=== PATIENT | female | born 1975 | race Caucasian/White ===

== ENCOUNTER 2018-03-05 16:15 | Outpatient (CLI) | payer OTHER | END 2018-03-05 16:16 | disposition home or self-care (01) | LOC: BICRAD 16:15 | PROVIDERS: ATTEND Internal Medicine Gastroenterology | DX: C18.7 Malignant neoplasm of sigmoid colon (principal); R10.33 Periumbilical pain; R11.2 Nausea with vomiting, unspecified; R19.8 Other specified symptoms and signs involving the digestive system and abdomen | CPT/HCPCS: 74019 ==

== ENCOUNTER 2018-03-06 08:25 | Outpatient (CLI) | payer OTHER ==
[2018-03-06] MEDS ORDERED: Iopamidol 370 76% 100 ML VIAL ONE (10:44)
== END 2018-03-06 08:26 | disposition home or self-care (01) ==
LOC: BICCT 08:25
PROVIDERS: ATTEND Internal Medicine Gastroenterology
DX: R10.33 Periumbilical pain (principal); R11.2 Nausea with vomiting, unspecified; R19.8 Other specified symptoms and signs involving the digestive system and abdomen; C18.7 Malignant neoplasm of sigmoid colon; R93.3 Abnormal findings on diagnostic imaging of other parts of digestive tract
CPT/HCPCS: 74177

== ENCOUNTER 2018-09-19 07:27 | Outpatient (CLI) | payer OTHER ==
--- NOTE | 2018-09-19 10:35 | CT ---
CT PARANASAL SINUSES NONCONTRAST: Date: 09/19/18 HISTORY: 43-year-old female with: J34.3 hypertrophy of nasal turbinates. R09.81 nasal congestion. J34.2 deviated nasal septum. R51 headache. Unilateral rhinorrhea. FINDINGS: Frontal Sinuses: Clear. Right frontal sinus is very hypoplastic. Bilateral frontal recesses are not occluded. Ethmoid Sinuses: Mild to moderate mucosal thickening throughout bilateral ethmoid air cells. Sphenoid Sinus: Mild mucosal thickening at the anterior aspects of both the right and left sphenoid air cells, including significant narrowing or occlusion of sphenoethmoidal recesses. The rest of the sphenoid air cells are clear. Right Maxillary Sinus: Mild mucosal thickening narrows the right infundibulum and ostium. Semilunar hiatus is narrowed or occluded by the mucosal thickening. Mild to moderate polypoid mucosal thickenin g throughout the right maxillary sinus, and a few small mucus retention cysts. Small air fluid level. Approximately 10-15% opacified. Left Maxillary Sinus: Small and moderate size mucus retention cysts. Mild circumferential mucosal th ickening. Apparent occlusion of left maxillary ostium and infundibulum by mucosal thickening. Approxi mately 60% opacified antrum. Nasal Cavity: Mild to moderate nasal septal deviation to the left with nasal spur. Middle and inferi or meati are grossly clear, except for a small amount of secretions at the inferior aspect of the rig ht inferior meatus. Mild mucosal thickening at superior meati. Bilateral middle ear cavities and mastoid antra are clear. Bilateral mastoid air cells are grossly cl ear. IMPRESSION: Mucosal disease of the paranasal sinuses, moderate involving bilateral maxillary sinuses, and mild in volving ethmoid and sphenoid sinuses. POS: CET
== END 2018-09-19 07:28 | disposition home or self-care (01) ==
LOC: SCSCT 07:27
PROVIDERS: ATTEND Otolaryngology Plastic Surgery within the Head & Neck
DX: H93.293 Other abnormal auditory perceptions, bilateral (principal); R51 Headache; H81.49 Vertigo of central origin, unspecified ear; J34.3 Hypertrophy of nasal turbinates; R09.81 Nasal congestion; J34.2 Deviated nasal septum

== ENCOUNTER 2019-07-04 08:50 | Outpatient (CLI) | payer OTHER ==
--- NOTE | 2019-07-04 11:55 | NM ---
EXAM: NM Hida Scan W Drug PROVIDED CLINICAL HISTORY: Epigastric abdominal pain and right-sided abdominal pain for 6 months. Irregular bowel movements. His tory of colon cancer. COMPARISON: None FINDINGS: Sequential anterior images of the abdomen are obtained. There is normal uptake and excretion of radio tracer by the liver. Gallbladder activity is faintly visualized by 12 minutes with increasing activity in the gallbladder imaging up to 60 minutes. Definite bowel activity is not seen by 60 minut es of imaging. After 60 minutes of imaging, 8 ounces of ensure was administered by mouth, and additional anterior imaging was obtained. Bowel activity is faintly visualized by 3 minutes. A gallbl adder ejection fraction of 33% was obtained. This is borderline diminished as a normal gallbladder ejection fraction is greater than 33%. IMPRESSION: 1. No evidence of a cystic or common duct obstruction. 2. Decrease in gallbladder ejection fraction measuring 33%. Normal gallbladder ejection fraction is g reater than 33%. This can be seen with biliary dyskinesis or chronic cholecystitis.
== END 2019-07-04 08:51 | disposition home or self-care (01) ==
LOC: NM 08:50
PROVIDERS: ATTEND Physician Assistant Medical
DX: R11.2 Nausea with vomiting, unspecified (principal); R10.13 Epigastric pain; R19.4 Change in bowel habit; R10.9 Unspecified abdominal pain; R14.0 Abdominal distension (gaseous)
CPT/HCPCS: 78227; A9537

== ENCOUNTER 2019-07-25 09:47 | Day surgery (SDC) | payer OTHER ==
[2019-07-24 11:52] VITALS: BMI 40.3
[2019-07-25 11:04] LABS: #Basophils 0.1 thou/uL (0.0-0.2); #Eosinphils 0.2 thou/uL (0.0-0.7); #Lymphocytes 1.1 thou/uL (1.20-3.40); #Monocytes 0.3 thou/uL (0.11-0.59); #Neutrophils 2.9 thou/uL (1.40-6.50); %Basophils 1.1 % (0.0-1.0); %Eosinophils 3.4 % (0.0-10.0); %Lymphocytes 25.1 % (21.0-51.0); %Monocytes 6.8 % (0.0-10.0); %Neutrophils 63.7 % (42.0-75.0); Hemoglobin 12.1 g/dL (12.0-16.0); Mean Corpuscular HGB CONC 33.5 g/dL (32.0-36.0); Mean Corpuscular Volume 92.5 fL (78.0-98.0); Mean Platelet Volume 8.7 fL (7.4-10.4); Platelet Count 177 thou/uL (130-400); Red Blood Cell (RBC) Count 3.91 mill/uL (4.20-5.40); White Blood Cell (WBC) Count 4.5 thou/uL (4.8-10.8)
[2019-07-25 11:32] LABS: ALT (SGPT) 11 U/L (8-55); AST (SGOT) 11 U/L (5-34); Albumin 4.2 g/dL (3.5-5.0); Alkaline Phosphatase 65 U/L (40-150); Anion Gap 7 mmol/L (10-20); BUN (Urea Nitrogen) 10 mg/dL (7.0-18.7); Bilirubin, Direct 0.2 mg/dL (0.1-0.3); Bilirubin, Total 0.5 mg/dL (0.2-1.2); Calc. Creatinine Clearance 156 mL/min (70-130); Calcium 9.5 mg/dL (7.8-10.44); Carbon Dioxide 31 mmol/L (22-29); Chloride 104 mmol/L (98-107); Estimated GFR-MDRD 80; Glucose 89 mg/dL (70-105); Potassium 4.5 mmol/L (3.5-5.1); Protein, Total 6.4 g/dL (6.0-8.3); Sodium 137 mmol/L (136-145)
[2019-07-25] MEDS ORDERED: Fentanyl 100 MCG/2 ML VIAL ONE ×2 (11:43→13:25)
[2019-07-25] MEDS ORDERED: Bupivacaine/Epinephrine 0.25% 30 ML VIAL ONE (11:44)
[2019-07-25] MEDS ORDERED: cefOXitin 2 GM VIAL ONE (12:14)
[2019-07-25] MEDS ORDERED: Morphine 4 MG/ML VIAL ONE (13:38)
[2019-07-25] MEDS ORDERED: Ketorolac Tromethamine 30 MG/ML VIAL ONE (13:47)
[2019-07-25] MEDS ORDERED: HYDROmorphone 0.5 MG/0.5 ML SYRINGE ONE ×2 (13:58→14:08)
[2019-07-25] MEDS ORDERED: diphenhydrAMINE 50 MG/ML VIAL ONE (14:26)
--- NOTE | 2019-07-28 10:23 | OP ---
DATE OF PROCEDURE: 07/25/2019 PREOPERATIVE DIAGNOSIS: Chronic cholecystitis. PROCEDURE PERFORMED: Laparoscopic cholecystectomy. INDICATIONS: A 44-year-old female, who has been having right upper quadrant pain, worse after eating, radiating to the back, associated with nausea. Ultrasound, negative. HIDA scan showed a low ejection fraction. FINDINGS: Lot of adhesions, small cystic duct. DESCRIPTION OF PROCEDURE: After informed consent was obtained, the patient was taken to the operating room and given general endotracheal anesthesia. She was placed in supine position. Abdomen was prepped and draped in usual fashion. Local anesthesia infiltrated subcutaneously and deep. A 5 mm incision was performed in right lateral abdomen. Veress needle inserted. Drop test performed. Pneumoperitoneum was created to a volume of 2 L of carbon dioxide. Utilizing a bladeless 5 mm trocar and 0-degree laparoscope, direct visual entry into the abdominal cavity was performed. Pneumoperitoneum was created to a pressure of 15 mmHg and under direct vision, two other 5 mm ports were placed subcostally. A laparoscopic lysis of adhesions was performed sharply utilizing Metzenbaum scissors as well as the LigaSure. Then, a 12 mm port was placed supraumbilical. The gallbladder was grasped, advanced superiorly. Adhesions were lysed. The peritoneum opened sharply, and using blunt and sharp dissection, the cystic duct and cystic artery as well as critical view were dissected out. The duct and artery were triply ligated with hemoclips and divided. The gallbladder removed from its fossa utilizing electrocautery, removed from the abdomen in an endosac through the epigastric incision. Hemostasis was assured. The fascia closed with 0 Vicryl suture and the GraNee needle. Trocars and retractors were removed. Skin closed with interrupted 4-0 Rapide. Dermabond applied. The patient tolerated the procedure well, transferred to Recovery in good condition. Sponge and needle count verified correct x2. Job ID: [id number]
== END 2019-07-25 16:05 | disposition home or self-care (01) ==
LOC: SDC 09:47
PROVIDERS: ATTEND Surgery
PROC: 0FT44ZZ Resection of Gallbladder, Percutaneous Endoscopic Approach (ICD-10-PCS; principal; 2019-07-25)
DX: K81.1 Chronic cholecystitis (principal); K82.8 Other specified diseases of gallbladder; E11.9 Type 2 diabetes mellitus without complications; Z91.048 Other nonmedicinal substance allergy status
CPT/HCPCS: 36415; 80048; 80076; 85025; 88304; J0131; J0694; J1170; J1200; J1885; J2270; J3010

== ENCOUNTER 2020-06-11 07:19 | Outpatient (CLI) | payer OTHER ==
--- NOTE | 2020-06-11 09:17 | CT ---
ABDOMEN CT WITH AND WITHOUT CONTRAST PELVIC WITH AND WITHOUT CONTRAST: HISTORY: Right-sided abdominal pain. Change in bowel habits. Cancer. COMPARISON: 05/29/2019, 03/06/2018. TECHNIQUE: An abdomen and pelvis CT are performed with and without IV contrast. Enterography protocol was [facility]. Sagittal and coronal reformatted images are submitted for interpretation. FINDINGS: Abdomen CT: Clear lung bases. Minimal atelectatic change. HEART: Heart size. No significant pericardial fluid. Portal vein: Patent. Gallbladder: Surgically absent. Liver: Redemonstration of 2 well-circumscribed hypodensities involving the left hepatic lobe in the m edial and lateral segments. Lateral segment hypodensity measures 1.4 x 1.1 cm, presumably measuring 1.8 x 1.6 cm. Medial segment hypodensity currently measures 2.1 x 2.1 cm, presumably measuring 1.4 x 1.6 cm. Attenuation coefficient on the noncontrast exam is 49 Hounsfield units, 54 Hounsfield units on the arterial phase images and 58 Hounsfield units on the delayed images. Complex cyst is favored. No new or enhancing hepatic masses Spleen: Appropriate attenuation. Pancreas: Appropriate. Kidneys: Symmetric enhancement. Bilaterally no obstructive uropathy. Adrenal glands: Appropriate. Lymph nodes: No gastrohepatic, retrocrural or periportal lymphadenopathy. Anterior abdominal wall: Small anterior abdominal wall hernia, measuring 3.2 cm. There is herniation of mesenteric fat without definite bowel herniation. Alimentary canal: Gastric mucosa, duodenum and small bowel loops have the overall normal mucosal appe arance. No significant mucosal thickening. Ileocecal junction is normal. Normal caliber appendix is identified. There is scattered fecal material in a nondistended, nondilated colon. Normal thickness o f the colon mucosa. An anastomotic suture chain at the level of the distal sigmoid colon. Pelvis CT: Urinary bladder has a normal mucosal appearance. No pelvic mass, lymphadenopathy, free air or free fl uid. Uterus is surgically absent. Osseous structures: No lytic or blastic lesions. IMPRESSION: 1. Previous surgery at the level of distal sigmoid colon. No mucosal abnormality throughout the entir e alimentary canal. 2. Interval increase in size of a hypodensity in the medial segment of the left hepatic lobe. Slightl y complex cyst is favored. Better interrogation with abdomen MRI would be beneficial. 3. Interval decrease in size of a hypodensity noted in the lateral segment of the left hepatic lobe. Transcribed Date/Time: 06/11/2020 10:02 AM
[2020-06-11] MEDS ORDERED: Iopamidol-370 76% 500 ML 1 ML ONE (11:58)
== END 2020-06-11 07:20 | disposition home or self-care (01) ==
LOC: BICCT 07:19
PROVIDERS: ATTEND Internal Medicine Gastroenterology
DX: R10.9 Unspecified abdominal pain (principal); R19.4 Change in bowel habit; K76.9 Liver disease, unspecified; Z85.048 Personal history of other malignant neoplasm of rectum, rectosigmoid junction, and anus
CPT/HCPCS: 74178; Q9967

== ENCOUNTER 2023-01-05 06:03 | Day surgery (SDC) | payer BC ==
[2023-01-03 15:29] VITALS: BMI 35.2
[2023-01-05] MEDS ORDERED: Bupivacaine/Epinephrine 0.25% 30 ML VIAL ONE (06:37)
[2023-01-05] MEDS ORDERED: fentaNYL PF 100 MCG/2 ML SYRINGE ONE (07:34)
[2023-01-05] MEDS ORDERED: Promethazine HCl 25 MG/ML VIAL ONE (07:34)
[2023-01-05] MEDS ORDERED: Sodium Chloride 0.9% 100 ML ONE (07:44)
[2023-01-05] MEDS ORDERED: CEFAZOLIN 2 GM VIAL ONE (07:44)
[2023-01-05] MEDS ORDERED: Ketorolac Tromethamine 30 MG/ML VIAL ONE (08:04)
[2023-01-05] MEDS ORDERED: Ondansetron PF 4 MG/2 ML Vial ONE ×2 (08:04→10:30)
[2023-01-05] MEDS ORDERED: PROPOFOL 200 MG/20 ML VIAL ONE (08:04)
[2023-01-05] MEDS ORDERED: Rocuronium Bromide 10 MG/ML (10ML VIAL) ONE (08:04)
[2023-01-05] MEDS ORDERED: Glycopyrrolate 0.2 MG/ML 5 ML SYRINGE ONE (08:04)
[2023-01-05] MEDS ORDERED: NEOSTIGMINE 3 MG/3 ML SYR 3 MG/3 ML SYRINGE ONE (08:04)
[2023-01-05] MEDS ORDERED: Dexamethasone 20 MG/5 ML VIAL ONE (08:04)
[2023-01-05] MEDS ORDERED: ePHEDrine 50 MG/ML VIAL ONE (08:04)
[2023-01-05] MEDS ORDERED: Lidocaine 1% PF 5 ML VIAL ONE (08:04)
[2023-01-05] MEDS ORDERED: Meperidine HCl/PF 25 MG/ML VIAL ONE (09:40)
[2023-01-05] MEDS ORDERED: Fentanyl 100 MCG/2 ML VIAL ONE (09:40)
== END 2023-01-05 10:50 | disposition home or self-care (01) ==
LOC: SDC 06:03
PROVIDERS: ATTEND Surgery
PROC: 0DTJ4ZZ Resection of Appendix, Percutaneous Endoscopic Approach (ICD-10-PCS; principal; 2023-01-05)
PROC: 0DNU4ZZ Release Omentum, Percutaneous Endoscopic Approach (ICD-10-PCS; principal; 2023-01-05)
DX: K35.80 Unspecified acute appendicitis (principal); K38.1 Appendicular concretions; K66.0 Peritoneal adhesions (postprocedural) (postinfection); Z85.048 Personal history of other malignant neoplasm of rectum, rectosigmoid junction, and anus; Z79.899 Other long term (current) drug therapy; Z91.048 Other nonmedicinal substance allergy status; Z90.49 Acquired absence of other specified parts of digestive tract; Z90.711 Acquired absence of uterus with remaining cervical stump; Z90.721 Acquired absence of ovaries, unilateral
CPT/HCPCS: 88304; A4649; J1100; J1885; J2175; J2405; J2550; J2704; J3010; J3490